=== PATIENT | male | born 1950 | race Caucasian/White ===

== ENCOUNTER 2022-08-24 12:39 | Emergency (ER) | payer MEDICARE, MEDICAID ==
[~2022-08-24] VITALS: Ht 165.1 cm; Wt 86.0 kg
[~2022-08-24 12:39] MED LIST: ATOR40TA70 PO; CALC0.253 PO; HYDR-4135 PO; INSU100I28 SQ; ISOS30TA91 PO; LOSA100T32 PO; XAR15 PO
[2022-08-24 14:02] VITALS: BP 171/91
[2022-08-24] MEDS ORDERED: TETRACAINE 0.5% OPHTH DROPS 4ML LEFTEYE ONE (16:00)
[2022-08-24] MEDS ORDERED: FLUORESCEIN SODIUM 1MG/STRIP LEFTEYE ONE (16:00)
[2022-08-24] MEDS ORDERED: MECL-159 MT (17:08)
[2022-08-24] MEDS ORDERED: OFLO5DRO3 LEFTEYE (17:08)
[2022-08-24] MEDS ORDERED: TETANUS AND DIPHTHERIA TOX/PF 0.5ML SYR (ADULT) IM ONE (17:15)
[2022-08-24] MEDS ORDERED: TETANUS, DIPHTHERIA, PERTUSSIS VAC/PF 0.5ML (>10YR OLD) IM ONE (17:30)
== END 2022-08-24 18:31 | disposition home or self-care (01) ==
LOC: ER 13:04
DX: S05.02XA Injury of conjunctiva and corneal abrasion without foreign body, left eye, initial encounter (principal); W26.8XXA Contact with other sharp object(s), not elsewhere classified, initial encounter; Y93.89 Activity, other specified; Y92.9 Unspecified place or not applicable; I12.9 Hypertensive chronic kidney disease with stage 1 through stage 4 chronic kidney disease, or unspecified chronic kidney disease; E11.22 Type 2 diabetes mellitus with diabetic chronic kidney disease; N18.9 Chronic kidney disease, unspecified; Z79.4 Long term (current) use of insulin
CPT/HCPCS: 90471; 90714; 90715; 99283

== ENCOUNTER 2022-11-06 19:30 | Emergency (ER) | payer MEDICARE, MEDICAID ==
[~2022-11-06] VITALS: Ht 165.1 cm; Wt 92.8 kg
[~2022-11-06 19:30] MED LIST changes: +MECL-159 MT; +OFLO5DRO3 LEFTEYE
[2022-11-06 19:38] VITALS: BP 170/84
[2022-11-06 22:31] LABS: BASOPHILS % 0.9 % (0.0-2.0); EOSINOPHILS % 4.2 % (0.0-5.0); HEMOGLOBIN. 10.6 g/dL (14.0-18.0); LYMPHOCYTES % 20.4 % (20.0-50.0); MEAN CORPUSCULAR HEMOGLOBIN 27.1 pg (28.0-32.0); MEAN CORPUSCULAR VOLUME 81.4 fL (80.0-94.0); MEAN PLATELET VOLUME 8.5 fl (7.4-10.4); MONOCYTES % 9.8 % (2.0-8.0); NEUTROPHILS % 64.7 % (40.0-76.0); PLATELET 355 x1000/uL (130-400); RED BLOOD CELL COUNT 3.93 mill/uL (4.7-6.1); RED CELL DISTRIBUTION WIDTH 14.4 % (11.6-14.6)
[2022-11-06 22:38] LABS: CHLORIDE 103 mEq/L (98-107)
[2022-11-06 22:40] LABS: PROTHROMBIN TIME 10.6 sec (9.6-11.0)
[2022-11-07] MEDS ORDERED: NITROGLYCERIN OINT 1GM/INCH UDPKT TD ONE (06:15)
== END 2022-11-07 05:55 | disposition left against medical advice (07) ==
LOC: ER 19:30 → CANBEDREQ 11-07 19:39
DX: R07.9 Chest pain, unspecified (principal); E11.9 Type 2 diabetes mellitus without complications; I10 Essential (primary) hypertension; Z79.4 Long term (current) use of insulin; Z98.62 Peripheral vascular angioplasty status
CPT/HCPCS: 36415; 71045; 80053; 82962; 84484; 85025; 93005; 99285

== ENCOUNTER 2022-11-09 13:36 | Inpatient (IN) | payer MEDICARE, MEDICAID ==
[~2022-11-09] VITALS: Ht 172.7 cm; Wt 91.2 kg
[2022-11-09 14:42] LABS: CHLORIDE 101 mEq/L (98-107)
[2022-11-09 15:00] LABS: EOSINOPHILS % 4.7 % (0.0-5.0); HEMATOCRIT. 29.9 % (42.0-52.0); HEMOGLOBIN. 9.6 g/dL (14.0-18.0); LYMPHOCYTES % 17.6 % (20.0-50.0); MEAN CORPUSCULAR HEMOGLOBIN 26.7 pg (28.0-32.0); MEAN CORPUSCULAR VOLUME 83.2 fL (80.0-94.0); MEAN PLATELET VOLUME 8.7 fl (7.4-10.4); MONOCYTES % 10.8 % (2.0-8.0); NEUTROPHILS % 65.9 % (40.0-76.0); PLATELET 326 x1000/uL (130-400); RED CELL DISTRIBUTION WIDTH 14.2 % (11.6-14.6)
[2022-11-10] MEDS ORDERED: ONDANSETRON HCL 4MG/2ML INJ IV PRN (10:00)
[2022-11-10] MEDS ORDERED: DIPHENHYDRAMINE 50MG/ML VIAL IV PRN (10:00)
[2022-11-10] MEDS ORDERED: IPRATROPIUM/ALBUTEROL 0.5-3(2.5)MG/3ML NEB HHN PRN (10:00)
[2022-11-10] MEDS ORDERED: ACETAMINOPHEN 325MG TABLET PO PRN (10:00)
[2022-11-10 11:02] VITALS: BP 168/98
[2022-11-10] MEDS: CLONIDINE 0.1MG TABLET PO PRN (11:42)
[2022-11-10] MEDS ORDERED: DEXTROSE 50% WATER 50ML SYRINGE IV PRN (11:45)
[2022-11-10 12:00] VITALS: BP 171/90
[2022-11-10] MEDS: INSULIN LISPRO 100 UNITS/ML SUBCUT SCH ×3 (12:00→21:25)
[2022-11-10] MEDS ORDERED: IPRATROPIUM BROMIDE (0.02%) 0.5MG/2.5ML NEB HHN PRN (15:45)
[2022-11-10] MEDS ORDERED: ALBUTEROL (0.083%) 2.5MG/3ML NEB HHN PRN (15:45)
[2022-11-10] MEDS: HYDRALAZINE 20MG/ML VIAL IV PRN (15:50)
[2022-11-10 16:00] VITALS: BP 159/82
[2022-11-10] MEDS: BLOOD SUGAR DIAGNOSTIC STRIP TEST SCH ×2 (17:06→21:00)
[2022-11-10 17:44] LABS: CLARITY URINE CLEAR (CLEAR); COLOR URINE YELLOW (YELLOW); KETONES URINE NEGATIVE (NEGATIVE); LEUKOCYTE ESTERASE URINE NEGATIVE (NEGATIVE); NITRITE URINE NEGATIVE (NEGATIVE); OCCULT BLOOD URINE TRACE (NEGATIVE); PROTEIN URINE 4+ (NEGATIVE); SPECIFIC GRAVITY URINE 1.015 (1.005-1.030); UROBILINOGEN URINE 0.2 E.U./dL (0.2-1.0)
[2022-11-10 18:34] LABS: CREATINE KINASE 275 IU/L (39-308)
[2022-11-10 20:28] VITALS: BP 150/75
[2022-11-11 00:32] VITALS: BP 161/82
[2022-11-11] MEDS: CLONIDINE 0.1MG TABLET PO PRN ×2 (01:06→14:04)
[2022-11-11 04:00] VITALS: BP 156/76
[2022-11-11 05:50] LABS: BASOPHILS % 0.8 % (0.0-2.0); EOSINOPHILS % 4.8 % (0.0-5.0); HEMATOCRIT. 31.5 % (42.0-52.0); HEMOGLOBIN. 10.4 g/dL (14.0-18.0); LYMPHOCYTES % 18.8 % (20.0-50.0); MEAN CORPUSCULAR HEMOGLOBIN 26.8 pg (28.0-32.0); MEAN CORPUSCULAR VOLUME 81.1 fL (80.0-94.0); MEAN PLATELET VOLUME 8.5 fl (7.4-10.4); MONOCYTES % 8.8 % (2.0-8.0); NEUTROPHILS % 66.8 % (40.0-76.0); PLATELET 321 x1000/uL (130-400); RED BLOOD CELL COUNT 3.88 mill/uL (4.7-6.1); RED CELL DISTRIBUTION WIDTH 14.1 % (11.6-14.6)
[2022-11-11] MEDS: BLOOD SUGAR DIAGNOSTIC STRIP TEST SCH ×2 (06:36→12:40)
[2022-11-11] MEDS: INSULIN LISPRO 100 UNITS/ML SUBCUT SCH ×2 (06:36→12:57)
[2022-11-11 08:00] VITALS: BP 177/101
[2022-11-11] MEDS: HYDRALAZINE 20MG/ML VIAL IV PRN (08:34)
[2022-11-11 08:50] LABS: CHLORIDE 107 mEq/L (98-107)
[2022-11-11] MEDS ORDERED: AMLO5TAB88 MT (11:09)
[2022-11-11 12:00] VITALS: BP 181/93
[2022-11-11 16:00] VITALS: BP 156/82
[2022-11-11 16:26] VITALS: BP 156/82
== END 2022-11-11 18:13 | disposition home or self-care (01) | DRG 683 ==
LOC: ER 13:36 → MICUSO 21:04 → EDBEDREQTM 21:08 → EDBEDREQ 21:08 → 7WST 11-10 14:42
PROVIDERS: ADMIT Internal Medicine; ATTEND Internal Medicine
DX: N17.9 Acute kidney failure, unspecified (principal); I13.11 Hypertensive heart and chronic kidney disease without heart failure, with stage 5 chronic kidney disease, or end stage renal disease; N18.5 Chronic kidney disease, stage 5; E11.22 Type 2 diabetes mellitus with diabetic chronic kidney disease; E11.65 Type 2 diabetes mellitus with hyperglycemia; Z20.822 Contact with and (suspected) exposure to COVID-19; D63.8 Anemia in other chronic diseases classified elsewhere; I16.0 Hypertensive urgency; E78.00 Pure hypercholesterolemia, unspecified; Z79.4 Long term (current) use of insulin
CPT/HCPCS: 36415; 71045; 76770; 80053; 81003; 82550; 82962; 83036; 83880; 84484; 85025; 87426; 93005; 93970; 99285; J0360; J1815